=== PATIENT | female | born 1995 | race Caucasian/White ===

== ENCOUNTER 2017-05-26 09:46 | Inpatient (IN) ==
[2017-05-26] MEDS ORDERED: 0.9 % Sodium Chloride 1,000 ML IVC ONE (10:04)
--- NOTE | 2017-05-26 10:09 | Emergency Department Note ---
Disposition Clinical Impression: Hypoxia Pneumonia Qualifiers: Pneumonia type: due to unspecified organism Laterality: bilateral Lung location : lower lobe of lung Qualified Code(s): J18.9 - Pneumonia, unspecified organism Disposition: Admitted As Inpatient Condition: Good Referrals: Mercy Gonzalez DO [Primary Care Provider] - Forms: ED Satisfaction Letter Time of Disposition: 12:23 SOB HPI - General Chief Complaint: ED Chest Pain Stated Complaint: chest pain Time Seen by Provider: 05/26/17 09:56 Source: patient Mode of arrival: ambulatory Limitations: no limitations Nursing Notes Reviewed: Yes Vital Signs Reviewed: Yes - History of Present Illness 22-year-old whose had a cough congestion for about 11 days with a persistent fever and has not been below 100.1 for the 11 days. Patient was seen here last week and diagnosed with a viral syndrome however no blood work or x-rays were done. Patient had persistent shortness of breath on arrival here pulse ox 85% on room air. Pt Subjective Complaint: shortness of breath, cough Onset (ago): week(s) Context: recent illness Severity: moderate Consistency/Duration: constant Improves with: nothing Worsens with: exertion Associated symptoms: Reports: fever, cough Treatment prior to arrival: none Cough present: Yes Cough Description: Involuntary Cough Frequency: Intermittent Sputum Amount: None - Related Data Home Medications Medication Instructions Recorded Confirmed Ferrous Sulfate 324 mg PO DAILY 04/27/15 04/27/15 Dha 1 tab PO DAILY 04/27/15 04/27/15 Previous Rx's Medication Instructions Recorded Ferrous Sulfate 325 mg PO BIDWM #60 tablet 04/28/15 Ibuprofen [Motrin] 600 mg PO Q6H PRN #60 tablet 04/28/15 Ondansetron ODT [Zofran ODT] 4 mg SL Q6HR PRN #12 tab.rapdis 05/19/17 Allergies Allergy/AdvReac Type Severity Reaction Status Date / Time peanut Allergy Anaphylaxis Verified 05/19/17 13:55 All systems ED: reviewed and negative except as stated. Constitutional: Reports: fever, chills. Denies: weakness, weight change Eyes: Denies: eye pain, eye discharge, vision change ENT ED: Denies: ear pain, throat pain, dental pain, hearing loss, epistaxis, congestion, dysphagia Cardiovascular: Denies: chest pain, palpitations, dyspnea on exertion, edema, syncope Respiratory: Reports: cough, dyspnea. Denies: wheezes, hemoptysis, stridor Gastrointestinal: Denies: abdominal pain, nausea, vomiting, diarrhea, constipation, hematemesis, melena, hematochezia Genitourinary: Denies: dysuria, frequency, hematuria, discharge Musculoskeletal: Denies: back pain, neck pain, arthralgia, myalgia Integumentary: Denies: rash, abrasion, lesions Neurological: Denies: headache, weakness, numbness, paresthesias, confusion, abnormal gait, vertigo Psychiatric: Denies: anxiety, depression, suicidal thoughts, homicidal thoughts , auditory hallucinations, visual hallucinations Endocrine: Denies: fatigue Hematological/Lymphatic: Denies: easy bleeding, easy bruising Allergic/Immunologic: Denies: facial swelling, urticaria Past Medical History - Past Medical History Medical history: Reports: no medical history Surgical history: Reports: other Psychiatric history: Reports: no psych history - Social History Smoking Status: Never smoker Smokeless Tobacco Status: No Alcohol use: Reports: none Drug use: Reports: none Physical Exam - General Limitations: no limitations General appearance: alert, in no apparent distress - Head Head exam: atraumatic, normocephalic, normal inspection - Eye Eye exam: Present: normal appearance, PERRL, EOMI - ENT ENT exam: normal exam, normal oropharynx, mucous membranes moist - Neck Neck exam: Present: normal inspection, full ROM, trachea midline - Chest Chest inspection: Present: normal inspection, symmetric chest wall rise - Respiratory Respiratory exam: Present: normal lung sounds bilaterally, accessory muscle use - Cardiovascular Cardiovascular exam: Present: regular rate, normal rhythm, normal heart sounds - Abdominal Exam Abdominal exam: Present: soft, Non-Tender. Absent: tenderness, distention, guarding, rebound, rigidity - Extremities Exam Extremities exam: Present: normal inspection, full ROM. Absent: tenderness, pedal edema - Expanded Lower Extremity Exam Neurovascular/Tendon exam: Absent: motor deficit, sensory deficit, tendon deficit Gait: observed and normal - Back Exam Back exam: Present: normal inspection, full ROM. Absent: tenderness - Neurological Exam Neurological exam: Present: alert, oriented X3 - Psychiatric Psychiatric exam: Present: normal affect, normal mood - Skin Skin exam: Present: warm, dry, intact, normal color Course - Reevaluation(s) Reevaluation #1: 22-year-old with persistent fever cough and shortness of breath. Patient's pulse ox arrival was 85%. CT scan shows no PE but does show bilateral pneumonia. Patient will be admitted for further evaluation and treatment. Time: 13:03 - Consultations Consultation #1: Discussed with Dr. Grant, admit Time: 13:04 Vital Signs Temperature 100.1 F H 05/26/17 09:49 Pulse Rate 103 05/26/17 09:49 Respiratory Rate 16 05/26/17 09:49 Blood Pressure 101/65 05/26/17 09:49 O2 Sat by Pulse Oximetry 85 05/26/17 09:49 Temperature 100.1 F H 05/26/17 09:49 Pulse Rate 83 05/26/17 12:38 Respiratory Rate 16 05/26/17 12:38 Blood Pressure 125/77 05/26/17 12:38 O2 Sat by Pulse Oximetry 95 05/26/17 12:38 Oxygen Delivery Oxygen Delivery Nasal Cannula Shortness of Breath/Dyspnea - Lab Data Lab results reviewed: Yes I reviewed the patient's lab results. Result diagrams: 05/26/17 10:27 05/26/17 10:27 Lab Results 05/26/17 05/26/17 05/26/17 Range/Units 10:27 10:27 10:27 WBC 9.9 (4.3-11.1) K/mcL RBC 4.63 (3.82-4.97) M/mcL Hgb 13.5 (11.5-15.4) g/dL Hct 39.9 (35.3-44.9) % MCV 86.2 (83.0-100.0) fL MCH 29.2 (28.0-33.3) pg MCHC 33.8 (31.6-35.5) g/dL RDW 12.3 (11.5-14.5) % Plt Count 268 (140-400) K/mcL MPV 9.2 L (9.4-12.4) fL Immature Gran % 0.3 (0-4) % Seg Neutrophils % 82.4 % Lymphocytes % 7.3 % Monocytes % 9.7 % Eosinophils % 0.1 % Basophils % 0.2 % Neutrophils # 8.2 (1.6-8.9) K/mcL Lymphocytes # 0.7 (0.6-4.6) K/mcL Monocytes # 1.0 (0.0-1.3) K/mcL Eosinophils # 0.0 (0.0-0.6) K/mcL Basophils # 0.0 (0.0-0.2) K/mcL Reactive Lymphocytes Present A (Not Present) Platelet Estimate Normal (Normal) D-Dimer (0-500) ng/mLFEU Sodium 139 (136-145) mEq/L Potassium 3.6 (3.5-4.5) mEq/L Chloride 101 (98-109) mEq/L Carbon Dioxide 26 (19-29) mEq/L BUN 6 L (7-20) mg/dL Creatinine 0.85 (0.57-1.11) mg/dL Est GFR ( Amer) > 60 (> 60) Est GFR (Non-Af Amer) > 60 (> 60) BUN/Creatinine Ratio 7 (6-26) Glucose 107 H (70-99) mg/dL Calculated Osmolality 286 (280-300) Lactic Acid 1.0 (0.5-2.2) mmol/L Calcium 9.4 (8.6-10.8) mg/dL Troponin I (0-0.03) ng/mL B-Natriuretic Peptide (0-100) pg/mL Serum , Qual (Negative) Urine Color (Yellow) Urine Clarity (Clear) Urine pH (5.0-8.0) pH Units Ur Specific [place] (1.010-1.025) Urine Protein (Neg-Trace) mg/dL Urine Glucose (UA) (Normal) mg/dL Urine Ketones (Negative) mg/dL Urine Blood (Negative) Urine Nitrite (Negative) Urine Bilirubin (Negative) Urine Urobilinogen (Normal) mg/dL Ur Leukocyte Esterase (Negative) Urine Microscopic RBC (0-3) per hpf Urine Microscopic WBC (0-3) per hpf Ur Squamous Epith Cells (None-Few) per lpf Urine Bacteria (None-Few) per hpf Hyaline Casts (None-Few) per lpf Ur Culture Indicated? (NO) 05/26/17 05/26/17 05/26/17 Range/Units 10:27 10:27 10:27 WBC (4.3-11.1) K/mcL RBC (3.82-4.97) M/mcL Hgb (11.5-15.4) g/dL Hct (35.3-44.9) % MCV (83.0-100.0) fL MCH (28.0-33.3) pg MCHC (31.6-35.5) g/dL RDW (11.5-14.5) % Plt Count (140-400) K/mcL MPV (9.4-12.4) fL Immature Gran % (0-4) % Seg Neutrophils % % Lymphocytes % % Monocytes % % Eosinophils % % Basophils % % Neutrophils # (1.6-8.9) K/mcL Lymphocytes # (0.6-4.6) K/mcL Monocytes # (0.0-1.3) K/mcL Eosinophils # (0.0-0.6) K/mcL Basophils # (0.0-0.2) K/mcL Reactive Lymphocytes (Not Present) Platelet Estimate (Normal) D-Dimer 946 H (0-500) ng/mLFEU Sodium (136-145) mEq/L Potassium (3.5-4.5) mEq/L Chloride (98-109) mEq/L Carbon Dioxide (19-29) mEq/L BUN (7-20) mg/dL Creatinine (0.57-1.11) mg/dL Est GFR ( Amer) (> 60) Est GFR (Non-Af Amer) (> 60) BUN/Creatinine Ratio (6-26) Glucose (70-99) mg/dL Calculated Osmolality (280-300) Lactic Acid (0.5-2.2) mmol/L Calcium (8.6-10.8) mg/dL Troponin I 0.00 (0-0.03) ng/mL B-Natriuretic Peptide 10 (0-100) pg/mL Serum , Qual (Negative) Urine Color (Yellow) Urine Clarity (Clear) Urine pH (5.0-8.0) pH Units Ur Specific [place] (1.010-1.025) Urine Protein (Neg-Trace) mg/dL Urine Glucose (UA) (Normal) mg/dL Urine Ketones (Negative) mg/dL Urine Blood (Negative) Urine Nitrite (Negative) Urine Bilirubin (Negative) Urine Urobilinogen (Normal) mg/dL Ur Leukocyte Esterase (Negative) Urine Microscopic RBC (0-3) per hpf Urine Microscopic WBC (0-3) per hpf Ur Squamous Epith Cells (None-Few) per lpf Urine Bacteria (None-Few) per hpf Hyaline Casts (None-Few) per lpf Ur Culture Indicated? (NO) 05/26/17 05/26/17 Range/Units 10:27 12:37 WBC (4.3-11.1) K/mcL RBC (3.82-4.97) M/mcL Hgb (11.5-15.4) g/dL Hct (35.3-44.9) % MCV (83.0-100.0) fL MCH (28.0-33.3) pg MCHC (31.6-35.5) g/dL RDW (11.5-14.5) % Plt Count (140-400) K/mcL MPV (9.4-12.4) fL Immature Gran % (0-4) % Seg Neutrophils % % Lymphocytes % % Monocytes % % Eosinophils % % Basophils % % Neutrophils # (1.6-8.9) K/mcL Lymphocytes # (0.6-4.6) K/mcL Monocytes # (0.0-1.3) K/mcL Eosinophils # (0.0-0.6) K/mcL Basophils # (0.0-0.2) K/mcL Reactive Lymphocytes (Not Present) Platelet Estimate (Normal) D-Dimer (0-500) ng/mLFEU Sodium (136-145) mEq/L Potassium (3.5-4.5) mEq/L Chloride (98-109) mEq/L Carbon Dioxide (19-29) mEq/L BUN (7-20) mg/dL Creatinine (0.57-1.11) mg/dL Est GFR ( Amer) (> 60) Est GFR (Non-Af Amer) (> 60) BUN/Creatinine Ratio (6-26) Glucose (70-99) mg/dL Calculated Osmolality (280-300) Lactic Acid (0.5-2.2) mmol/L Calcium (8.6-10.8) mg/dL Troponin I (0-0.03) ng/mL B-Natriuretic Peptide (0-100) pg/mL Serum , Qual Negative (Negative) Urine Color Yellow (Yellow) Urine Clarity Clear (Clear) Urine pH 6.5 (5.0-8.0) pH Units Ur Specific [place] > 1.030 H (1.010-1.025) Urine Protein 30 H (Neg-Trace) mg/dL Urine Glucose (UA) Normal (Normal) mg/dL Urine Ketones Negative (Negative) mg/dL Urine Blood Negative (Negative) Urine Nitrite Negative (Negative) Urine Bilirubin Negative (Negative) Urine Urobilinogen 4.0 H (Normal) mg/dL Ur Leukocyte Esterase Negative (Negative) Urine Microscopic RBC 3-5 H (0-3) per hpf Urine Microscopic WBC 0-3 (0-3) per hpf Ur Squamous Epith Cells Many H (None-Few) per lpf Urine Bacteria None Seen (None-Few) per hpf Hyaline Casts None Seen (None-Few) per lpf Ur Culture Indicated? NO (NO) - Radiology Data Radiology results reviewed: Yes I reviewed the patient's radiology results. Chest X-Ray 05/26/17 10:04 IMPRESSION: Bibasilar airspace disease, greater on the left, suspicious for pneumonia. Edema could have this appearance as well. Follow-up is recommended. D/ / Ute Quinteros Cha, MD / Ute Quinteros Cha, MD Interpreting Provider: Ute Quinteros Cha, MD Chest CTA 05/26/17 11:19 IMPRESSION: No CT evidence pulmonary embolism. Central bronchial wall thickening as well as multifocal bilateral airspace disease most compatible with pneumonia in D/ / Ute Quinteros Cha, MD / Ute Quinteros Cha, MD Interpreting Provider: Ute Quinteros Cha, MD - EKG Data EKG attestation: Yes I reviewed and interpreted this EKG. EKG shows normal: Reports: sinus rhythm Rate: Reports: normal Rhythm: Reports: NSR Interpretation: Reports: no acute changes
[2017-05-26 10:44] LABS: Basophils % 0.2 %; Eosinophils % 0.1 %; Hematocrit 39.9 % (35.3-44.9); Hemoglobin 13.5 g/dL (11.5-15.4); Immature Granulocytes % 0.3 % (0-4); Lymphocytes # 0.7 K/mcL (0.6-4.6); Lymphocytes % 7.3 %; Mean Corpuscular HGB Conc 33.8 g/dL (31.6-35.5); Mean Corpuscular Hemoglobin 29.2 pg (28.0-33.3); Mean Corpuscular Volume 86.2 fL (83.0-100.0); Mean Platelet Volume 9.2 fL (9.4-12.4); Monocytes % 9.7 %; Platelet Count 268 K/mcL (140-400); Red Blood Count 4.63 M/mcL (3.82-4.97); Red Cell Distribution Width 12.3 % (11.5-14.5); Segmented Neutrophils % 82.4 %
[2017-05-26 10:51] LABS: BUN/Creatinine Ratio 7 (6-26); Blood Urea Nitrogen 6 mg/dL (7-20); Calcium 9.4 mg/dL (8.6-10.8); Carbon Dioxide 26 mEq/L (19-29); Chloride 101 mEq/L (98-109); Glucose 107 mg/dL (70-99); Osmolality,Calculated 286 (280-300); Potassium 3.6 mEq/L (3.5-4.5); Sodium 139 mEq/L (136-145); eGFR For African Americans > 60 (> 60); eGFR For Non-African Americans > 60 (> 60)
[2017-05-26 10:59] LABS: Neutrophils # 8.2 K/mcL (1.6-8.9)
[2017-05-26 11:10] LABS: Platelet Estimate Normal (Normal); Reactive Lymphocytes Present (Not Present)
[2017-05-26] MEDS ORDERED: Azithromycin 500 MG in D5% in Water 250 ML IVPB ONE (12:21)
[2017-05-26 12:58] LABS: Bilirubin,Urine Negative (Negative); Blood,Urine Negative (Negative); Clarity,Urine Clear (Clear); Color,Urine Yellow (Yellow); Glucose,Urine (UA) Normal (Normal); Ketones,Urine Negative (Negative); Leukocyte Esterase,Urine Negative (Negative); Nitrite,Urine Negative (Negative); PH,Urine 6.5 pH Units (5.0-8.0); Protein,Urine 30 mg/dL (Neg-Trace); Specific Gravity,Urine > 1.030 (1.010-1.025)
[2017-05-26] MEDS ORDERED: Naloxone 0.4 MG/ML INJ IVP PRN (13:00)
[2017-05-26] MEDS ORDERED: Ondansetron 4 MG/2 ML VIAL IVP PRN (13:00)
[2017-05-26 13:01] LABS: Bacteria,Urine None Seen per hpf (None-Few); Hyaline Casts,Urine None Seen per lpf (None-Few); Squamous Epithelial Cell,Urine Many per lpf (None-Few); WBC,Urine 0-3 per hpf (0-3)
--- NOTE | 2017-05-26 13:04 | Internal Med History&Physical ---
Date of Encounter: 05/26/17 Time of Encounter: 13:03 Assessment and Plan (1) Pneumonia Current visit: Yes Status: Acute IV cefepime , azithromycin. duonebs IVF Needing supplemental oxygen due to desats Qualifiers: Pneumonia type: due to unspecified organism Laterality: bilateral Lung location: lower lobe of lung Qualified Code(s): J18.9 - Pneumonia, unspecified organism (2) Chronic hyponatremia Current visit: Yes Status: Acute uses an unknown medication prescribed by Dr Ga of cardiology - suspect for hyponatremia. will return home to confirm name and dose of medication. Internal Medicine - H&P: HPI Chief complaint: SOB History of present illness: Ms. Elaine is a 22 year old female who presents with SOB, desat to 85% on RA. Found to have b/l PNA. She developed SOB since saturday and was seen in the ED where she was given IVF, zofran and sent home. Since returning home, her SOB did not improve and led to presentation back to the ED. Reported fatigue and muscle aches. Noted Fever this morning. No chills. SOB worse with exertion, improved with 2 L NC. EXAMINATION: CTA OF THE CHEST 05/26/2017 12:04 pm TECHNIQUE: CTA of the chest was performed after the administration of intravenous contrast. Multiplanar reformatted images are provided for review. MIP images are provided for review. Dose modulation, iterative reconstruction, and/or weight based adjustment of the mA/kV was utilized to reduce the radiation dose to as low as reasonably achievable. COMPARISON: Chest x-ray performed today HISTORY: ORDERING SYSTEM PROVIDED HISTORY: Dyspnea elevated d-dimer 70 ml of [id number] Abnormal chest x-ray showing airspace disease. FINDINGS: Pulmonary Arteries: Pulmonary arteries are adequately opacified for evaluation. No evidence of intraluminal filling defect to suggest pulmonary embolism. Main pulmonary artery is normal in caliber. Mediastinum: There are mildly prominent bilateral hilar lymph nodes. A left hilar lymph node measures 1.1 x 1.3 cm. The heart and pericardium demonstrate no acute abnormality. There is no acute abnormality of the thoracic aorta. Lungs/pleura: The central airways are patent. Central bronchial wall thickening is identified. There is multifocal bilateral airspace disease with areas of tree-in-bud nodularity as well as consolidation, greatest within the lower lobes, greater on the left. A small right pleural effusion is present. Upper Abdomen: Limited images of the upper abdomen show no acute abnormality. The visualized adrenal glands are within normal limits. Soft Tissues/Bones: No acute bone or soft tissue abnormality. CT/CT angio chest IMPRESSION: No CT evidence pulmonary embolism. Central bronchial wall thickening as well as multifocal bilateral airspace disease most compatible with pneumonia in Past Med Surg Social Fam HX - Past Medical History Medical history: no medical history Psychiatric history: no psych history - Past Surgical History Surgical History: other - Social History Smoking Status: Never smoker Smokeless Tobacco Status: No Alcohol use: none Drug use: none - Family History Father Living Status: Still Living Hx Family Cancer: Yes (melanoma) Internal Medicine - H&P: Meds Ferrous Sulfate 324 mg PO DAILY 04/27/15 [History] Dha 1 tab PO DAILY 04/27/15 [History] Ferrous Sulfate 325 mg PO BIDWM #60 tablet 04/28/15 [Rx] Ibuprofen [Motrin] 600 mg PO Q6H PRN #60 tablet 04/28/15 [Rx] Ondansetron ODT [Zofran ODT] 4 mg SL Q6HR PRN #12 tab.rapdis 05/19/17 [Rx] 3 Allergy/AdvReac Type Severity Reaction Status Date / Time peanut Allergy Anaphylaxis Verified 05/19/17 13:55 All Systems PM: A 10-system review of systems was performed and is negative for pertinent findings except as documented above in the HPI. Review of systems: ROS 14 point review of systems reviewed as best as possible given presentation. Pertinent positive or negative as per HPI or otherwise reviewed as negative - Constitutional Vitals: Temp Pulse Resp BP Pulse Ox 100.1 F H 83 16 125/77 95 05/26/17 09:49 05/26/17 12:38 05/26/17 12:38 05/26/17 12:38 05/26/17 12:38 Exam: General - AAO x 3 Psych - Appropriate affect/speech. No agitation Eyes - TERESA. Eye lids intact. No scleral icterus Neuro - No gross peripheral or central neuro deficits with intact CN 2-12 exam Heart - Sinus. RRR. S1 and S2 present. No added HS/murmurs appreciated. No elevated JVD appreciated. Lung - Adequate air entry b/l, and basal crackles, no wheeze GI - Soft, non-tender. No hepatosplenomegaly/ascites. BS+ - No CVA/suprapubic tenderness or palpable bladder distension Skin - Intact. No rash/petechiae/ecchymosis. Warm extremities MSK - Joints with normal ROM. No joint swellings Internal Med - H&P Results - Labs CBC & Chem 7: 05/26/17 10:27 05/26/17 10:27 Labs: Short CBC 05/26/17 Range/Units 10:27 WBC 9.9 (4.3-11.1) K/mcL Hgb 13.5 (11.5-15.4) g/dL Hct 39.9 (35.3-44.9) % Plt Count 268 (140-400) K/mcL Neutrophils # 8.2 (1.6-8.9) K/mcL BMP 05/26/17 10:27 Sodium 139 Potassium 3.6 Chloride 101 Carbon Dioxide 26 BUN 6 L Creatinine 0.85 Glucose 107 H Calcium 9.4 Cardiac Enzymes 05/26/17 Range/Units 10:27 Troponin I 0.00 (0-0.03) ng/mL - Impressions ITS Impressions Chest X-Ray 05/26/17 10:04 IMPRESSION: Bibasilar airspace disease, greater on the left, suspicious for pneumonia. Edema could have this appearance as well. Follow-up is recommended. D/ / Ute Quinteros Cha, MD / Ute Quinteros Cha, MD Interpreting Provider: Ute Quinteros Cha, MD Chest CTA 05/26/17 11:19 IMPRESSION: No CT evidence pulmonary embolism. Central bronchial wall thickening as well as multifocal bilateral airspace disease most compatible with pneumonia in D/ / Ute Quinteros Cha, MD / Ute Quinteros Cha, MD Interpreting Provider: Ute Quinteros Cha, MD
[2017-05-26] MEDS ORDERED: Ibuprofen 600 MG TABLET PO PRN (13:10)
[2017-05-26] MEDS ORDERED: Ipratropium/Albuterol Neb 3 ML IH PRN (13:15)
[2017-05-26] MEDS: 0.9 % Sodium Chloride 1,000 ML IVC SCH (14:46)
[2017-05-26] MEDS ORDERED: Acetaminophen 325 MG TABLET PO PRN (15:17)
[2017-05-26] MEDS: Ipratropium/Albuterol Neb 3 ML IH SCH ×2 (16:37→22:38)
[2017-05-26] MEDS: Cefepime HCl 2,000 MG in D5% in Water (Mini-Bag+) 100 ML IVPB SCH (17:55)
[2017-05-27] MEDS: Ipratropium/Albuterol Neb 3 ML IH SCH ×4 (04:10→21:27)
[2017-05-27 05:07] LABS: BUN/Creatinine Ratio 6 (6-26); Calcium 8.2 mg/dL (8.6-10.8); Carbon Dioxide 24 mEq/L (19-29); Chloride 106 mEq/L (98-109); Glucose 107 mg/dL (70-99); Osmolality,Calculated 283 (280-300); Potassium 3.1 mEq/L (3.5-4.5); Sodium 138 mEq/L (136-145); eGFR For African Americans > 60 (> 60); eGFR For Non-African Americans > 60 (> 60)
[2017-05-27 05:08] LABS: Blood Urea Nitrogen 4 mg/dL (7-20)
[2017-05-27] MEDS: Cefepime HCl 2,000 MG in D5% in Water (Mini-Bag+) 100 ML IVPB SCH (05:47)
[2017-05-27] MEDS: *HR* Enoxaparin 40 MG/0.4 ML SYRINGE SQ SCH (05:47)
[2017-05-27] MEDS ORDERED: Ibuprofen 600 MG TABLET PO PRN (09:48)
[2017-05-27] MEDS ORDERED: Saline Nasal Spray 44 ML BOTTLE NS PRN (10:07)
--- NOTE | 2017-05-27 11:05 | Internal Med Progress Note ---
Date of Encounter: 05/27/17 Time of Encounter: 11:03 - Assessment and plan (1) Respiratory failure Current Visit: Yes Status: Acute Assessment and plan: Acute hypoxic respiratory failure secondary to sepsis due to community-acquired pneumonia/possible gram-negative pneumonia Developed a fever of 101 and heart rate 103 upon admission Desaturated down to 85%, continue oxygen Discontinue cefepime and start Rocephin Continue azithromycin day [address] scan of the chest shows multifocal pneumonia Qualifiers: Chronicity: acute Respiratory failure complication: hypoxia Qualified Code(s): J96.01 - Acute respiratory failure with hypoxia (2) Hypokalemia Current Visit: Yes Status: Acute Assessment and plan: Replete as needed (3) Anemia Current Visit: No Status: Acute Assessment and plan: Possible chronic iron deficiency anemia Qualifiers: Anemia type: iron deficiency Iron deficiency anemia type: unspecified iron deficiency Qualified Code(s): D50.9 - Iron deficiency anemia, unspecified (4) Pneumonia Current Visit: Yes Status: Acute Qualifiers: Pneumonia type: due to unspecified organism Laterality: bilateral Lung location: lower lobe of lung Qualified Code(s): J18.9 - Pneumonia, unspecified organism (5) Hypoxia Current Visit: Yes Status: Acute (6) Chronic hyponatremia Current Visit: Yes Status: Acute Assessment and plan: uses an unknown medication prescribed by Dr Ga of cardiology - suspect for hyponatremia. will return home to confirm name and dose of medication. - Subjective Interval history: Physical/her breath, had a fever yesterday, denies any chest pain, no abdominal pain or dysuria. No diarrhea. Complains of some pain on her left ear - Constitutional Vitals: Temp Pulse Resp BP Pulse Ox 97.6 F 71 17 113/76 94 05/27/17 10:52 05/27/17 10:52 05/27/17 10:52 05/27/17 10:52 05/27/17 10:52 General appearance: Present: A&O X 3 - Head Head exam: Present: atraumatic, normocephalic - Eye Eye exam: Present: PERRL, conjuntiva pink, sclera anicteric Pupils: Present: PERRL - Neck Neck exam general surgery: Present: supple, trachea midline. Absent: lymphadenopathy - Respiratory Respiratory exam: Present: decreased breath sounds, CTAB. Absent: accessory muscle use, rales, rhonchi, wheezes - Cardiovascular Cardiovascular exam: Present: RRR, +S1, +S2. Absent: diastolic murmur, gallop, rubs, systolic murmur - GI/Abdominal GI/Abdominal exam: Present: normal bowel sounds, soft, no peritoneal signs. Absent: distended, tenderness - Extremities Exam Extremities exam: Present: warm, radial pulses palpable and symmetrical. Absent : calf tenderness, cyanotic, pedal edema - Neurological Exam Neurological exam: Present: CN II-XII intact, oriented X3, no focal deficits. Absent: pronater drift, facial droop, speech deficit - Skin Skin exam: Present: dry, intact Internal Medicine: Result - Labs CBC & Chem 7: 05/26/17 10:27 05/27/17 04:40 Labs: BMP 05/27/17 04:40 Sodium 138 Potassium 3.1 L Chloride 106 Carbon Dioxide 24 BUN 4 L Creatinine 0.72 Glucose 107 H Calcium 8.2 L - ABG Interpretation ABG results: PT/INR, D-dimer D-Dimer 946 ng/mLFEU (0-500) H 05/26/17 10:27 Consult Discharge Plan - Plan Referrals: Mercy Gonzalez DO [Primary Care Provider] -
[2017-05-27] MEDS ORDERED: Azithromycin 500 MG in D5% in Water 250 ML IVPB SCH (12:00)
--- NOTE | 2017-05-27 13:40 | Electrocardiograph Report ---
[address] [address] Test Date: 2017-05-26 Pat Name: Jaycee Elaine Department: 102 Room: 2A42 Gender: F [employer]: Ross : 1995 Requested By: Guille Duff Order Number: [id number] Reading MD: Candida Hyaden Measurements Intervals [place] Rate: 89 P: 71 FL: 124 QRS: 65 QRSD: 91 T: 50 QT: 348 QTc: 394 Interpretive Statements SINUS RHYTHM Electronically Signed On 05-27-2017 13:38:43 EDT by Candida Hayden
[2017-05-27] MEDS: 0.9 % Sodium Chloride 1,000 ML IVC SCH ×3 (14:28→20:24)
[2017-05-28] MEDS: 0.9 % Sodium Chloride 1,000 ML IVC SCH ×2 (00:59→11:38)
[2017-05-28] MEDS: Ipratropium/Albuterol Neb 3 ML IH SCH ×2 (04:05→10:45)
[2017-05-28] MEDS: *HR* Enoxaparin 40 MG/0.4 ML SYRINGE SQ SCH (05:33)
[2017-05-28 06:21] LABS: BUN/Creatinine Ratio 4 (6-26); Blood Urea Nitrogen 3 mg/dL (7-20); Calcium 8.7 mg/dL (8.6-10.8); Carbon Dioxide 26 mEq/L (19-29); Chloride 107 mEq/L (98-109); Glucose 98 mg/dL (70-99); Hematocrit 32.3 % (35.3-44.9); Mean Corpuscular HGB Conc 34.7 g/dL (31.6-35.5); Mean Corpuscular Hemoglobin 30.2 pg (28.0-33.3); Mean Corpuscular Volume 87.1 fL (83.0-100.0); Osmolality,Calculated 289 (280-300); Platelet Count 244 K/mcL (140-400); Potassium 3.6 mEq/L (3.5-4.5); Red Blood Count 3.71 M/mcL (3.82-4.97); Red Cell Distribution Width 12.5 % (11.5-14.5); Sodium 141 mEq/L (136-145); eGFR For African Americans > 60 (> 60); eGFR For Non-African Americans > 60 (> 60)
[2017-05-28 06:25] LABS: Hemoglobin 11.2 g/dL (11.5-15.4)
[2017-05-28 11:07] VITALS: BP 111/63
--- NOTE | 2017-05-28 12:26 | Discharge Summary ---
Date of Encounter: 05/28/17 Time of Encounter: 12:24 - Discharge Diagnosis (1) Pneumonia Priority: Primary Status: Resolved Qualifiers: Pneumonia type: due to unspecified organism Laterality: bilateral Lung location: lower lobe of lung Qualified Code(s): J18.9 - Pneumonia, unspecified organism (2) Hypoxia Priority: Secondary Status: Resolved - Discharge Medications Home Medications: Fludrocortisone Acetate [Florinef] 0.1 mg PO DAILY 05/26/17 [History] Cefdinir [Omnicef] 300 mg PO BID #10 capsule 05/28/17 [Rx] Ferrous Sulfate 325 mg PO BIDWM tablet 05/28/17 [Rx] Allergies/Adverse Reactions: 3 Allergy/AdvReac Type Severity Reaction Status Date / Time peanut Allergy Anaphylaxis Verified 05/19/17 13:55 Date of admission: 05/26/17 13:11 Primary care physician: Mercy Gonzalez DO Discharging clinician: Jo Ann Arvizu - Patient Status Disposition: Home, Self-Care Condition: Good Overall status at discharge: patient is progressing back to baseline - Discharge Instructions Follow Up With: Mercy Gonzalez DO [Primary Care Provider] - 06/03/17 10:00 am (Please follow up as schedule) - Diet and Activity Activity: resume usual activities as tolerated Diet: advance to your usual diet Interval History: Ms. Elaine is a 22 year old female who presents with SOB, desat to 85% on RA. Found to have b/l PNA. She developed SOB since saturday and was seen in the ED where she was given IVF, zofran and sent home. Since returning home, her SOB did not improve and led to presentation back to the ED. Reported fatigue and muscle aches. Noted Fever this morning. No chills. SOB worse with exertion, improved with 2 L NC. Hospital course: A CTA of the chest was done negative for PE. He is continued on IV fluids. She was started on Rocephin and azithromycin. She was able to wean down oxygen to room air without any issue. One day after admission patient stated she feels better. She had a total of 3 doses of azithromycin IV at 500 mg, which would cover a complete course of azithromycin. She is discharged home with Omnicef to complete 5 more days. - Time Spent with Patient Total time spent providing and/or coordinating discharge services: - Constitutional Vitals: Temp Pulse Resp BP Pulse Ox 97.9 F 70 16 111/63 94 05/28/17 11:02 05/28/17 11:02 05/28/17 11:02 05/28/17 11:02 05/28/17 11:02 General appearance: Present: A&O X 3, pleasant, no acute distress, answers questions appropriately - Respiratory Respiratory exam: Present: CTAB. Absent: accessory muscle use, rales, rhonchi, wheezes - Cardiovascular Cardiovascular exam: Present: RRR, +S1, +S2. Absent: diastolic murmur, gallop, rubs, systolic murmur - Extremities Exam Extremities exam: Present: warm, radial pulses palpable and symmetrical. Absent : calf tenderness, cyanotic, pedal edema - Skin Skin exam: Present: dry, intact
[2017-05-28] MEDS ORDERED: FLUARIX QUAD 2017-18 36MOS UP/PF 0.5 ML SYRINGE IM ONE (13:01)
[2017-05-28] MEDS ORDERED: Azithromycin 250 MG TABLET PO SCH (14:00)
[2017-05-28] MEDS ORDERED: Azithromycin 500 MG in D5% in Water 250 ML IVPB SCH (14:00)
[2017-05-29] MEDS ORDERED: Azithromycin 250 MG TABLET PO SCH (09:00)
== END 2017-05-28 14:08 | disposition home or self-care (01) | DRG 720 ==
LOC: 2ANU 09:46 → EMEROO 09:46 → SUATTDRO 13:11 → 2ANU 14:09
PROVIDERS: ADMIT Internal Medicine Hematology & Oncology; ATTEND Student in an Organized Health Care Education/Training Program